=== PATIENT | male | born 1935 | race Caucasian/White ===

== ENCOUNTER 2019-06-21 10:23 | Emergency (ER) | payer MEDICARE ==
[~2019-06-21] VITALS: Ht 185.4 cm; Wt 104.0 kg
[2019-06-21] MEDS ORDERED: TRAM100T13 PO (11:33)
[2019-06-21] MEDS ORDERED: APIX5TAB4 PO (11:33)
[2019-06-21] MEDS ORDERED: ATEN25TA PO (11:33)
--- NOTE | 2019-06-21 11:34 | NUR ---
PT TO ROOM 10 PER WHEELCHAIR. PT A/O X3, HERE WITH . PT C/O RIGHT HIP PAIN STARTING 3 WEEKS AGO, AND HAS PROGRESSIVELY GOTTEN WORSE OVER THE LAST FEW DAYS. PT ALSO C/O SCIATICA. ASSESSMENT PERFORMED. NO SHORTENING OF LEG, NO FALL. PT HAS WEAK PALPABLE PULSES AND LOWER EXTREMITIES ARE COOL. PT CURRENTLY AMBULATING WITH CRUTCHES. PT HAS A PACEMAKER, AND HISTORY OF AFIB. REP IN TO ASSESS PATIENT. ORDERS WILL BE PLACED FOR PAIN CONTROL AND XRAY.
--- NOTE | 2019-06-21 11:36 | NUR ---
PT IN GOWN FOR ASSESSMENT, PLACED ON MONITOR FOR NIBP AND PULSE OX.
[2019-06-21] MEDS ORDERED: KETOROLAC 30 MG/1 ML ONE (11:46)
[2019-06-21] MEDS ORDERED: CYCLOBENZAPRINE 10 MG TABLET ONE (11:46)
[2019-06-21] MEDS ORDERED: ONDANSETRON ODT 4 MG ONE (11:46)
[2019-06-21] MEDS ORDERED: HYDROcodone/APAP 5/325 TABLET ONE (11:47)
--- NOTE | 2019-06-21 11:55 | NUR ---
MEDICATIONS ADMINISTERED WITHOUT DIFFICULTY. PT TO XRAY PER CART.
[2019-06-21] MEDS ORDERED: KETOROLAC 30 MG/1 ML IM ONE (12:00)
[2019-06-21] MEDS ORDERED: ONDANSETRON ODT 4 MG PO ONE (12:00)
[2019-06-21] MEDS ORDERED: HYDROcodone/APAP 5/325 TABLET PO ONE (12:00)
[2019-06-21] MEDS ORDERED: CYCLOBENZAPRINE 10 MG TABLET PO ONE (12:00)
--- NOTE | 2019-06-21 12:21 | NUR ---
PT RETURNED FROM XRAY, MONITOR ATTACHED.
--- NOTE | 2019-06-21 13:30 | NUR ---
PT RESTING. PAIN IS 0. WANTING TEST RESULTS.
--- NOTE | 2019-06-21 14:53 | NUR ---
URINE COLLECTED AND SENT
[2019-06-21 15:13] LABS: MICROSCOPIC AUTO
[2019-06-21 15:17] LABS: CULTURE INDICATED? NO
--- NOTE | 2019-06-21 15:30 | NUR ---
BARBARA SENT FOR , GETTING ANGRY AND WANTS TO LEAVE.
--- NOTE | 2019-06-21 15:42 | NUR ---
DISCHARGE INSTRUCTIONS GIVEN TO PATIENT AND SPOUSE. PRESCSRIPTION GIVEN TO PATIENT WITH INSTRUCTIONS ON IT'S USE AND POSSIBLE SIDE EFFECTS. PATIENT AND VERBALIZE UNDERSTANDING OF ALL INSTRUCTIONS AND FOLLOW UP. LIST OF MD'S GIVEN TO PATIENT. PT OUT PER WHEELCHAIR WITH CRUTCHES AND ALL PERSONAL BELONGINGS.
[2019-06-21 15:43] VITALS: BP 155/76
== END 2019-06-21 16:09 | disposition home or self-care (01) ==
LOC: ED 15:20
DX: M54.41 Lumbago with sciatica, right side (principal); G89.29 Other chronic pain; I10 Essential (primary) hypertension; I48.91 Unspecified atrial fibrillation; Z90.49 Acquired absence of other specified parts of digestive tract
CPT/HCPCS: 72110; 73502; 81001; 96372; 99285; J1885; Q0162